=== PATIENT | female | born 1955 | race Caucasian/White ===

== ENCOUNTER 2023-01-31 05:25 | Day surgery (SDC) | payer OTHER ==
[~2023-01-31] VITALS: Ht 162.6 cm; Wt 54.0 kg
[2023-01-31] MEDS ORDERED: COLACE100 MG PO (08:44)
[2023-01-31] MEDS ORDERED: NEURONTIN300 MG PO (08:44)
[2023-01-31] MEDS ORDERED: TRAM1TAB98 PO (08:44)
== END 2023-01-31 13:00 | disposition home or self-care (01) ==
LOC: CIR.AMB 05:25
PROVIDERS: ATTEND Surgery
DX: D37.8 Neoplasm of uncertain behavior of other specified digestive organs (principal); A63.0 Anogenital (venereal) warts; K62.89 Other specified diseases of anus and rectum; D12.9 Benign neoplasm of anus and anal canal; K62.5 Hemorrhage of anus and rectum; Z20.822 Contact with and (suspected) exposure to COVID-19; I10 Essential (primary) hypertension